=== PATIENT | male | born 1975 | race Caucasian/White ===

== ENCOUNTER 2025-09-22 08:58 | Emergency (ER) | payer MEDICAID ==
[~2025-09-22] VITALS: Ht 172.7 cm; Wt 85.0 kg
[2025-09-22] MEDS ORDERED: IBUP-1455 MT (09:53)
[2025-09-22] MEDS: IBUPROFEN 600MG TABLET PO ONE (10:10)
[2025-09-22 10:39] VITALS: BP 118/86; PULSE 77; RESP 18; TEMP 36.7; O2SAT 100
== END 2025-09-22 10:42 | disposition home or self-care (01) ==
LOC: ER 08:58
DX: S82.891A Other fracture of right lower leg, initial encounter for closed fracture (principal); W19.XXXA Unspecified fall, initial encounter; Y93.89 Activity, other specified; Y92.89 Other specified places as the place of occurrence of the external cause; Y99.8 Other external cause status
CPT/HCPCS: 73610; 29515; 99283; Z7610; A6449